=== PATIENT | female | born 1965 | race Caucasian/White ===

== ENCOUNTER 2022-06-09 09:31 | Emergency (ER) | payer OTHER, SELFPAY ==
[2022-06-09 09:32] VITALS: BP 174/90; PULSE 77; RESP 16; TEMP 36.1; O2SAT 100; BMI 32.5
--- NOTE | 2022-06-09 09:58 | CT_ITS ---
STUDY: CT ABDOMEN AND PELVIS WITHOUT CONTRAST REASON FOR EXAM: Female, 57 years old. Left flank pain X 5 DAYS RADIATION DOSAGE (If Supplied By Facility): CTDIvol = ( 11.49 ) mGy, DLP = ( 579.78 ) mGycm TECHNIQUE: Transaxial images were obtained from the dome of the diaphragm to the symphysis pubis without oral contrast, and without intravenous contrast. Sagittal and coronal images were reconstructed. Individualized dose optimization techniques were used for this CT. COMPARISON: None. FINDINGS: The visualized lung bases are unremarkable. The visualized portions of the heart are within normal limits. Normal liver. Normal gallbladder and extrahepatic biliary system. Normal spleen. Normal pancreas. Normal bilateral adrenal glands. Normal right kidney. Normal left kidney. Normal visualized stomach. Normal small intestine. Retained stool noted throughout the colon. The appendix is visualized and appears normal. Appendix seen on coronal reconstructed image 53 Normal abdominal aorta. Normal inferior vena cava. Normal retroperitoneum. Normal urinary bladder. Uterus is present, the endometrium cannot be accurately evaluated with CT. Normal abdominal wall. Mild degenerative changes in the lumbar spine and pelvis CT/Abdomen/Pelvis without Cont IMPRESSION: No suspicious solid organ abnormality, specifically, no obstructive uropathy or suspicious solid renal lesion. Uterus is present, the endometrium cannot be accurately evaluated with CT. No suspicious cystic mass or free fluid Retained stool throughout the colon No free intraperitoneal fluid, air, or suspicious adenopathy. Normal appendix visualized Electronically Signed: Zurdo Velázquez MD at 10:39 EDT ,
--- NOTE | 2022-06-09 09:59 | EDS_ITS ---
HPI <SEAN Gonzalez - Last Filed: 06/09/22 14:49> History of Present Illness Chief Complaint: Back Narrative Narrative: 57-year-old female with no past medical history presents with 5 days of left flank pain. Initially it was a dull ache and she thought she had pulled a muscle. Pain has become progressively worse and today it sharp in the left flank area. She had chills today but no fever. No nausea or vomiting. She had transient urinary frequency the other day but this resolved. No dysuria or hematuria. Normal daily bowel movements. She has no history of kidney stones or infections. No abdominal surgical history. She has no chest pain or sh ortness of breath. PFSH <SEAN Gonzalez Last Filed: 06/09/22 14:49> [facility] Medical History no medical history Home Medications fluticasone propionate 50 mcg/actuation nasal spray,suspension (Flonase Allergy Relief) 1 spray intranasal DAILY 06/09/22 [History Last Taken Unknown] Allergy/AdvReac Type Severity Reaction Status Date / Time droperidol Allergy Anaphylaxis Verified 06/09/22 10:11 Social History Smoking Status: Never smoker ROS <SEAN Gonzalez Last Filed: 06/09/22 14:49> ROS ED ROS Narrative Constitutional: Positive for chills. Negative for fever, malaise. Eyes: Negative for visual change. ENT: Negative for sore throat, ear pain, rhinorrhea. CVS: Negative for palpitations, chest pain, syncope. Respiratory: Negative for shortness of breath, cough, orthopnea. GI: Negative for abdominal pain, nausea, vomiting, diarrhea, constipation, melena, hematochezia. : Negative for dysuria, hematuria or frequency. Neuro: Negative for headache, motor/sensory dysfunction. Skin: Negative for rash, abscess, or wound. Musc: Negative for joint pain, swelling, trauma. Heme: Negative for easy bruising, bleeding, lymphadenopathy. EXAM <SEAN Gonzalez Last Filed: 06/09/22 14:49> Physical Exam Narrative Exam Narrative: CONST: Patient sitting in no acute distress. EYES: Normal inspection. NECK: Normal inspection. RESP: No respiratory distress, CTAB. CVS: Regular rate and rhythm, no murmur, no gallop. ABD: Soft and nontender, no guarding or rebound, nondistended, no hepatosplenomegaly. Back: Normal inspection with no rash or swelling, no midline spinal tenderness, mild left CVA tenderness. SKIN: Color normal, no rash, warm, dry, intact. EXTREMITIES: Normal appearance, no pedal edema. NEURO: Oriented x4. PSYCH: Normal affect. Const Vital Signs: 06/09/22 09:32 06/09/22 12:12 Temperature 97.0 F L Temperature Source Temporal Pulse Rate 77 Respiratory Rate 16 18 Blood Pressure 174/90 H Blood Pressure Mean 118 Pulse Ox 100 Oxygen Delivery Method Room Air <Dr. Arnel Galeas DO - Last Filed: 06/09/22 15:25> Physical Exam Const Vital Signs: 06/09/22 09:32 06/09/22 12:12 Temperature 97.0 F L Temperature Source Temporal Pulse Rate 77 Respiratory Rate 16 18 Blood Pressure 174/90 H Blood Pressure Mean 118 Pulse Ox 100 Oxygen Delivery Method Room Air MDM <SEAN Gonzalez - Last Filed: 06/09/22 14:49> [facility] Narrative Medical decision making narrative: Patient presents with left flank pain. She appears well nontoxic. Vital signs within normal limits. Heart is regular. Lungs clear. Abdomen soft and n ontender. Back appears normal with no rash or swelling. No midline spinal tenderness. Mild left CVA tenderness. Labs and UA are normal. CT shows no acute process. Does note some retained stool and she was advised to take miralax. Her pain may be musculoskeletal in nature but she should also monitor for a rash in case shingles appears. 1. Left flank pain of unknown etiology 2. Constipation Lab Data Attestation: I reviewed the patient's lab results. Labs: Laboratory Results - last 24 hr 06/09/22 06/09/22 06/09/22 10:05 10:05 10:50 WBC 5.7 RBC 4.42 Hgb 12.7 Hct 39.7 MCV 89.8 MCH 28.7 MCHC 32.0 RDW Std Deviation 44.2 H RDW Coeff of Brent 13.4 Plt Count 230 MPV 10.8 Immature Gran % (Auto) 0.400 Neut % (Auto) 57.7 Lymph % (Auto) 33.2 [place] % (Auto) 6.2 Eos % (Auto) 1.6 Baso % (Auto) 0.9 Absolute Neuts (auto) 3.3 Absolute Lymphs (auto) 1.88 Nucleated RBC % 0 Sodium 142 Potassium 3.5 Chloride 108 H Carbon Dioxide 30.0 Anion Gap 4 L BUN 18 Creatinine 0.79 Estim Creat Clear Calc 66.21 Est GFR (MDRD) Af Amer 96 Est GFR (MDRD) Non-Af 79 BUN/Creatinine Ratio 22.8 H Glucose 92 Calcium 8.9 Urine Color Straw Urine Clarity Clear Urine pH 6.5 Ur Specific [place] 1.015 Urine Protein Negative Urine Glucose (UA) Normal Urine Ketones Negative Urine Occult Blood 10 H Urine Nitrite Negative Urine Bilirubin Negative Urine Urobilinogen Normal Ur Leukocyte Esterase Negative Urine RBC 0 SEEN Urine WBC 0 SEEN Ur Squamous Epith Cells 0 SEEN Urine Bacteria 0 SEEN Urine Mucus 0 SEEN Radiography Diagnostic Testing: Clinical Impression(s) from Imaging Studies Abdomen/Pelvis CT 06/09/22 09:58 IMPRESSION: No suspicious solid organ abnormality, specifically, no obstructive uropathy or suspicious solid renal lesion. Uterus is present, the endometrium cannot be accurately evaluated with CT. No suspicious cystic mass or free fluid Retained stool throughout the colon No free intraperitoneal fluid, air, or suspicious adenopathy. Normal appendix visualized Electronically Signed: Zurdo Velázquez MD at 10:39 EDT Reading Location ID and State: [facility] / [place] , Service support , <Dr. Arnel aGleas, DO - Last Filed: 06/09/22 15:25> [facility] MDM Narrative Medical decision making narrative: This patient was seen with a PA/MEASUREMENT ANALYST Individually assessed they patient including history and physical. I have reviewed everything on the chart that is available and agree with the documentation provided by the PA/MEASUREMENT ANALYST including discussion about the assessment, treatment plan, discussion, and return precautions. Patient presents with left flank pain. She appears well nontoxic. Vital signs within normal limits. Heart is regular. Lungs clear. Abdomen soft and nontender. Back appears normal with no rash or swelling. No midline spinal tenderness. Mild left CVA tenderness. Labs and UA are normal. CT shows no acute process. Does note some retained stool and she was advised to take miralax. Her pain may be musculoskeletal in nature but she should also monitor for a rash in case shingles appears. 1. Left flank pain of unknown etiology 2. Constipation Lab Data Labs: Laboratory Results - last 24 hr 06/09/22 06/09/22 06/09/22 10:05 10:05 10:50 WBC 5.7 RBC 4.42 Hgb 12.7 Hct 39.7 MCV 89.8 MCH 28.7 MCHC 32.0 RDW Std Deviation 44.2 H RDW Coeff of Brent 13.4 Plt Count 230 MPV 10.8 Immature Gran % (Auto) 0.400 Neut % (Auto) 57.7 Lymph % (Auto) 33.2 [place] % (Auto) 6.2 Eos % (Auto) 1.6 Baso % (Auto) 0.9 Absolute Neuts (auto) 3.3 Absolute Lymphs (auto) 1.88 Nucleated RBC % 0 Sodium 142 Potassium 3.5 Chloride 108 H Carbon Dioxide 30.0 Anion Gap 4 L BUN 18 Creatinine 0.79 Estim Creat Clear Calc 66.21 Est GFR (MDRD) Af Amer 96 Est GFR (MDRD) Non-Af 79 BUN/Creatinine Ratio 22.8 H Glucose 92 Calcium 8.9 Urine Color Straw Urine Clarity Clear Urine pH 6.5 Ur Specific [place] 1.015 Urine Protein Negative Urine Glucose (UA) Normal Urine Ketones Negative Urine Occult Blood 10 H Urine Nitrite Negative Urine Bilirubin Negative Urine Urobilinogen Normal Ur Leukocyte Esterase Negative Urine RBC 0 SEEN Urine WBC 0 SEEN Ur Squamous Epith Cells 0 SEEN Urine Bacteria 0 SEEN Urine Mucus 0 SEEN Radiography Diagnostic Testing: Clinical Impression(s) from Imaging Studies Abdomen/Pelvis CT 06/09/22 09:58 IMPRESSION: No suspicious solid organ abnormality, specifically, no obstructive uropathy or suspicious solid renal lesion. Uterus is present, the endometrium cannot be accurately evaluated with CT. No suspicious cystic mass or free fluid Retained stool throughout the colon No free intraperitoneal fluid, air, or suspicious adenopathy. Normal appendix visualized Electronically Signed: Zurdo Velázquez MD at 10:39 EDT , Discharge Plan Triage Chief Complaint: Back ED Midlevel Provider: Yamini Hernandez ED Provider: Arnel Galeas Dx/Rx/DC Orders Clinical Impression: Acute left flank pain, Constipation Instructions: Treating Constipation, ED Flank Pain, Uncertain Cause Prescriptions: No Action fluticasone propionate [Flonase Allergy Relief] 50 mcg/actuation [place],Suspension 1 spray intranasal DAILY Primary Care Provider: YADIEL HOYOS Referrals: [facility] Doctor,Out of [NON-STAFF] - Activity Restrictions/Additional Instructions: Your blood work and urine looked normal. CT scan showed normal kidneys with no stone or infection. It did show you have a lot of stool and are constipated. Take 1 cap of miralax daily. For the flank pain I would take Tylenol or ibuprofen. Continue to monitor and if you develop a rash see your doctor or come back to the ER. Disposition Disposition: Home, Self Care Discharge Date/Time: 06/09/22 12:22
[2022-06-09 10:12] LABS: Absolute Lymphocyte Count 1.88 X10^3/uL (0.83-4.51); Absolute Neutrophil Count 3.3 X10^3/uL (2.0-7.7); Basophil# 0.05 X10^3/uL; Basophil% 0.9 % (0-1); Eosinophil# 0.09 X10^3/uL; Eosinophils% 1.6 % (0-5); Hematocrit 39.7 % (37-47); Hemoglobin 12.7 g/dL (12.0-15.0); Lymphocyte # 1.88 X10^3/ul (0.83-4.51); Lymphocyte % 33.2 % (19-41); Mean Corpuscular Hgb 28.7 pg (27.0-32.0); Mean Corpuscular Volume 89.8 fL (81-99); Mean Platelet Vol. 10.8 fl (6.2-12.0); Monocyte# 0.35 X10^3/uL; Monocyte% 6.2 % (0-10); NRBC Flagged by Analyzer 0 % (0-5); Neutrophil # 3.27 X10^3/uL (2.7-7.7); Neutrophil % 57.7 % (47-70); Platelet Count 230 K/mm3 (150-450); RBC Distribution Width CV 13.4 % (11.6-14.6); RBC Distribution Width SD 44.2 fl (35.1-43.9); Red Blood Count 4.42 M/mm3 (4.2-5.4); White Blood Count 5.7 K/mm3 (4.4-11.0)
[2022-06-09] MEDS: 0.9% Normal Saline 1,000 ML 999 ML IV (10:12)
[2022-06-09] MEDS: Ketorolac 30 MG/ML Syringe IV (10:13)
[2022-06-09 10:33] LABS: Anion Gap 4 (5-15); BUN 18 mg/dL (7-18); BUN/Creat Ratio 22.8 RATIO (10-20); Calcium,Total 8.9 mg/dL (8.5-10.1); Chloride 108 mmol/L (98-107); Creatinine, Serum 0.79 mg/dL (0.55-1.02); EST Glomerular Filtration Rate 79 mL/min (>60); Est Glom Filt Rate - Afr Amer 96 mL/min (>60); Estimated Creatinine Clearance 66.21 ml/min; Glucose 92 mg/dL (74-106); Potassium 3.5 mmol/L (3.5-5.1); Sodium Level 142 mmol/L (136-145)
[2022-06-09 10:58] LABS: Bacteria 0 SEEN /hpf (None Seen); Mucous, Urine 0 SEEN /hpf (<or=2+); Red Blood Cells-Urine 0 SEEN /hpf (0-5); Squamous Epithelial Cells - UA 0 SEEN /hpf (5-10); White Blood Cells 0 SEEN /hpf (0-5)
[2022-06-09 11:00] LABS: Color, Urine Straw (Yellow); Glucose, Dipstick Normal (Normal); Ketone-Dipstick Negative (Negative); Leukocyte Esterase-Dipstick Negative /ul (Negative); Nitrite-Dipstick Negative (Negative); Occult Blood-Urine 10 /ul (Negative); Protein-Dipstick Negative (Negative); Specific Gravity, Urine 1.015 (1.002-1.030); Urine Bilirubin Dipstick Negative (Negative); Urine Clarity Clear (Clear); Urine Urobilinogen Normal (Normal); Urine pH 6.5 (5.0 - 8.0)
[2022-06-09] MEDS: Lidocaine 5% Patch 1 PATCH TOPICAL (11:33)
[2022-06-09 12:12] VITALS: RESP 18
== END 2022-06-09 12:22 | disposition home or self-care (01) ==
PROVIDERS: Physician Assistant; Emergency Provider Student in an Organized Health Care Education/Training Program; Visit Provider Student in an Organized Health Care Education/Training Program
DX: R10.9 Unspecified abdominal pain (principal); K59.00 Constipation, unspecified
CPT/HCPCS: 74176; 80048; 81001; 85025; 96360; 96361; 99285; J7030; A4216

== ENCOUNTER 2023-07-10 04:31 | Emergency (ER) | payer OTHER, SELFPAY ==
[2023-07-10 04:32] VITALS: BP 161/83; PULSE 71; RESP 18; TEMP 36.6; O2SAT 99; BMI 33.5
--- NOTE | 2023-07-10 05:22 | RAD_ITS ---
EXAM: XR CHEST, 2 VIEWS CLINICAL INDICATION: chest pain TECHNIQUE: Frontal and lateral views of the chest. COMPARISON: No relevant prior studies available. FINDINGS: LUNGS AND PLEURAL SPACES: Unremarkable with the exception of multiple small calcified granulomas, greater on the right.. No consolidation or edema. No pneumothorax. No effusion. HEART: Unremarkable. Cardiac silhouette not enlarged. MEDIASTINUM: Central airways and mediastinal contour are unremarkable. BONES/JOINTS: Unremarkable. SOFT TISSUES: Unremarkable. RAD/Chest PA and Lateral IMPRESSION: No radiographic evidence of acute cardiopulmonary disease. Electronically Signed: Светлана Merritt MD at 5:53 EDT ,
[2023-07-10 05:37] LABS: Absolute Lymphocyte Count 2.52 X10^3/uL (0.83-4.51); Absolute Neutrophil Count 3.9 X10^3/uL (2.0-7.7); Basophil# 0.05 X10^3/uL; Basophil% 0.7 % (0-1); Eosinophil# 0.14 X10^3/uL; Hematocrit 38.4 % (37-47); Hemoglobin 12.5 g/dL (12.0-15.0); Lymphocyte # 2.52 X10^3/ul (0.83-4.51); Lymphocyte % 35.3 % (19-41); Mean Corp Hgb Conc 32.6 g/dL (32-36); Mean Corpuscular Hgb 29.4 pg (27.0-32.0); Mean Corpuscular Volume 90.4 fL (81-99); Monocyte# 0.53 X10^3/uL; Monocyte% 7.4 % (0-10); NRBC Flagged by Analyzer 0 % (0-5); Neutrophil # 3.89 X10^3/uL (2.7-7.7); Neutrophil % 54.5 % (47-70); Platelet Count 265 K/mm3 (150-450); RBC Distribution Width CV 13.6 % (11.6-14.6); RBC Distribution Width SD 45.6 fl (35.1-43.9); Red Blood Count 4.25 M/mm3 (4.2-5.4); White Blood Count 7.1 K/mm3 (4.4-11.0)
[2023-07-10 05:51] LABS: Anion Gap 3 (5-15); BUN 17 mg/dL (7-18); BUN/Creat Ratio 19.9 RATIO (10-20); Chloride 109 mmol/L (98-107); Creatinine, Serum 0.85 mg/dL (0.55-1.02); EST Glomerular Filtration Rate 72 mL/min (>60); Est Glom Filt Rate - Afr Amer 87 mL/min (>60); Estimated Creatinine Clearance 60.78 ml/min; Glucose 104 mg/dL (74-106); Magnesium 2.3 mg/dL (1.6-2.6); Potassium 3.6 mmol/L (3.5-5.1); Sodium Level 140 mmol/L (136-145); Troponin-I HS 3 pg/mL (3.0-54.0)
[2023-07-10 05:55] VITALS: BP 156/88; PULSE 67; RESP 15; O2SAT 98
[2023-07-10 05:56] LABS: D-Dimer Quantitative (DVT/PE) 0.28 FEU/ug/m (0.27-0.49)
[2023-07-10] MEDS: Aspirin 325 MG Tablet PO (05:57)
--- NOTE | 2023-07-10 06:35 | EDS_ITS ---
HPI History of Present Illness Chief Complaint: Chest Pain Informant: patient and spouse/S.O. Narrative Narrative: Patient is a 58-year-old female with no significant past medical history. She states that she flies to and from [place] for work. She states that roughly 4 to 5 hours ago she noticed some midsternal chest discomfort. She states there is no associated nausea vomiting diaphoresis or shortness of breath. However the symptoms have been persistent which makes her concerned for potential cardiac event and therefore comes in for evaluation. PFSH PFSH no medical history Home Medications fluticasone propionate 50 mcg/actuation nasal spray,suspension (Flonase Allergy Relief) 1 spray intranasal DAILY 06/09/22 [History Last Taken Unknown] Allergy/AdvReac Type Severity Reaction Status Date / Time droperidol Allergy Anaphylaxis Verified 06/09/22 10:11 Surgical History (Updated 07/10/23 @ 04:35 by Shauna Shelton) Hx of tonsillectomy S/P breast lumpectomy Social History Smoking Status: Never smoker ROS ROS ED Constitutional Constitutional ED: Denies chills or fever(s) Eyes Eyes: Denies change in vision ENT ENT ED: Denies sore throat Cardiovascular Cardiovascular: Reports chest pain; Denies palpitations or racing heartbeat Respiratory/Chest Respiratory/Chest: Denies cough or dyspnea Gastrointestinal Gastrointestinal: Denies abdominal pain, diarrhea, nausea or vomiting Genitourinary Genitourinary ED: Denies dysuria Musculoskeletal Musculoskeletal: Denies myalgias Integumentary Denies rash Neurologic Neurologic: Denies headache(s) Hematologic/Lymphatic Hematologic/Lymphatic: Denies easy bleeding or easy bruising EXAM Physical Exam Const Vital Signs: 07/10/23 04:32 07/10/23 05:55 Temperature 98 F Temperature Source Temporal Pulse Rate 71 67 Respiratory Rate 18 15 Blood Pressure 161/83 H 156/88 H Blood Pressure Mean 109 110 Pulse Ox 99 98 Oxygen Delivery Method Room Air Positive well nourished and well developed General Appearance ED: well developed HEENT Reports moist mucous membranes Eyes PERRL and EOMs intact bilaterally General Eye ED: Negative for scleral icterus Neck supple Chest Wall palpation of chest normal Chest Narrative: No bony deformity or crepitance noted Resp normal respiratory effort and clear to auscultation bilaterally Cardio regular rate and regular rhythm Rate: other Other Details: Radial and carotid pulses are equal and symmetric GI normal to inspection, nondistended, normoactive bowel sounds, non-tender and non-distended GI Narrative: No voluntary guarding or rigidity. No pulsatile mass or fluid wave Auscultation: normoactive bowel sounds Palpation: soft Extremity normal to inspection Extremity Narrative: No asymmetric edema no pitting edema negative Homans' sign bilaterally Neuro oriented x3, CN's II-XII intact bilaterally and no sensory deficits noted Sensorium / Orientation: alert Motor Exam: strength 5/5 throughout Psych mental status grossly normal Skin no rashes or lesions noted General Skin Exam: Negative for jaundice MDM MDM MDM Narrative Medical decision making narrative: Patient presented to the ER slightly hypertensive but otherwise with stable vitals. She reported persistent/constant chest pain for 4 to 5 hours. Her risk factors cardiovascular disease are low but with concern for potential acute coronary syndrome as a cause of her chest pain a basic cardiac work-up was obt ained. As differential also includes lung pathology such as pneumonia or pneumothorax a chest x-ray was ordered and as she flies to and from [place] frequently a D-dimer was obtained as well secondary to concern over potential PE or dissection. The patient's troponin was 3 and with constant pain for 4 to 5 hours prior to arrival I do not feel there is a need for delta troponin. D- dimer was also negative going against PE or dissection. Chest x-ray revealed no acute lung pathology. Therefore at this time as patient is low risk for cardiovascular disease and has had a negative work-up I do not feel there is need for further evaluation in the ER and he is otherwise safe for discharge. Patient does state that there has been moderate improvement of her pain prior to discharge. History & Record Review Discussion w/independent historian: Patient and Significant other Lab Data Attestation: I reviewed the patient's lab results. Labs: Laboratory Results - last 24 hr 07/10/23 04:35 WBC 7.1 RBC 4.25 Hgb 12.5 Hct 38.4 MCV 90.4 MCH 29.4 MCHC 32.6 RDW Std Deviation 45.6 H RDW Coeff of Brent 13.6 Plt Count 265 MPV 11.0 Immature Gran % (Auto) 0.100 Neut % (Auto) 54.5 Lymph % (Auto) 35.3 [place] % (Auto) 7.4 Eos % (Auto) 2.0 Baso % (Auto) 0.7 Absolute Neuts (auto) 3.9 Absolute Lymphs (auto) 2.52 Nucleated RBC % 0 D-Dimer Quant (PE/DVT) 0.28 Sodium 140 Potassium 3.6 Chloride 109 H Carbon Dioxide 28.0 Anion Gap 3 L BUN 17 Creatinine 0.85 Estim Creat Clear Calc 60.78 Est GFR (MDRD) Af Amer 87 Est GFR (MDRD) Non-Af 72 BUN/Creatinine Ratio 19.9 Glucose 104 Calcium 9.0 Magnesium 2.3 Troponin I High Sens 3 Radiography Diagnostic Testing: Clinical Impression(s) from Imaging Studies Chest X-Ray 07/10/23 05:22 IMPRESSION: No radiographic evidence of acute cardiopulmonary disease. Electronically Signed: Светлана Merritt MD at 5:53 EDT , Chest x-ray as interpreted by the emergency medicine physician reveals no acute infiltrate pneumothorax pleural effusion or widening of the mediastinum Discharge Plan Triage Chief Complaint: Chest Pain ED Provider: Ayad Luke Dx/Rx/DC Orders Clinical Impression: Nonspecific chest pain Instructions: ED Chest Pain, Uncertain Cause Prescriptions: No Action fluticasone propionate [Flonase Allergy Relief] 50 mcg/actuation [place],Suspension 1 spray intranasal DAILY Primary Care Provider: YADIEL HOYOS Referrals: YADIEL HOYOS [Other] Activity Restrictions/Additional Instructions: Your work-up today shows a normal troponin and normal EKG going against active heart disease/heart attack and your D-dimer is also normal going against blood clot or dissection. Follow-up with your family doctor to discuss further or repeat testing and return to the ER should you have any further concerns Disposition Disposition: Home, Self Care Discharge Date/Time: 07/10/23 06:52
--- NOTE | 2023-07-10 06:44 | EKG12_ITS ---
Test Reason : CP Blood Pressure : / mmHG Vent. Rate : 067 BPM Atrial Rate : 067 BPM P-R Int : 156 ms QRS Dur : 094 ms QT Int : 418 ms P-R-T Axes : 069 -50 042 degrees QTc Int : 441 ms Normal sinus rhythm Left anterior fascicular block Abnormal ECG No previous ECGs available Confirmed by KIARRA BROWN, ELIN ([id number]), content editor MITCHELL DENNY ([id number]) on 09/04/2023 1:41:31 PM Referred By: HUBERT Confirmed By:ELIN PLUNKETT MD
[2023-07-10 06:51] VITALS: BP 134/66; PULSE 81; RESP 16; O2SAT 98
== END 2023-07-10 06:52 | disposition home or self-care (01) ==
PROVIDERS: Emergency Provider Emergency Medicine; Visit Provider Emergency Medicine
DX: R07.9 Chest pain, unspecified (principal)
CPT/HCPCS: 71046; 80048; 83735; 84484; 85025; 85379; 93005; 99284; A4216